=== PATIENT | male | born 2000 | race African-American/Black ===

== ENCOUNTER 2020-04-24 02:19 | Emergency (ER) | payer SELFPAY ==
[~2020-04-24] VITALS: Ht 185.4 cm; Wt 63.5 kg
--- NOTE | 2020-04-24 02:24 | NUR ---
[address], pt states weakness s/p taking 4 tabs of xanax; 2mg per tab. pt denies si/hi. . pt aaox4, gowned, not in any distress, vss, pending er provider oanh
--- NOTE | 2020-04-24 02:40 | NUR ---
URINE COLLECTED. SENT TO LAB
--- NOTE | 2020-04-24 02:45 | NUR ---
CALLED [employer] SPOKE TO DON RECOMMENDS: BMP/ASA LEVEL/TYLENOL LEVER, MONITOR FOR 4HRS
[2020-04-24 02:53] LABS: BASOPHILS % (AUTO) 0.6 % (0.0-2.0); EOSINOPHILS % (AUTO) 1.8 % (0.0-6.0); HEMATOCRIT 41 % (39-51); HEMOGLOBIN 13.7 g/dL (13.5-17.5); LYMPHOCYTES # (AUTO) 2.3 /CMM (0.8-4.8); LYMPHOCYTES % (AUTO) 29.1 % (20.0-44.0); MEAN CORPUSCULAR HGB CONC 33 g/dl (31.0-36.0); MEAN CORPUSCULAR VOLUME 86 fL (80-96); MONOCYTES # (AUTO) 0.5 /CMM (0.1-1.30); MONOCYTES % (AUTO) 6.2 % (2.0-12.0); NEUTROPHILS % (AUTO) 62.3 % (43.0-81.0); PLATELET COUNT (AUTO) 261 /CMM (150-450); RED BLOOD CELL COUNT(AUTO) 4.78 MIL/uL (4.5-6.0)
[2020-04-24 03:04] LABS: BILIRUBIN,URINE NEGATIVE (NEGATIVE); COLOR,URINE YELLOW (YELLOW); LEUKOCYTE ESTERASE ,URINE NEGATIVE (NEGATIVE); NITRITE, URINE NEGATIVE (NEGATIVE); PH,URINE 5.5 (5.0-8.0); PROTEIN,URINE NEGATIVE (NEGATIVE); UGLUCOSE NEGATIVE (NEGATIVE); UROBILINOGEN,URINE 0.2 EU/dL (0.2)
[2020-04-24 03:05] LABS: CALCIUM, SERUM 9.6 mg/dL (8.5-10.1); CARBON DIOXIDE 29 mmol/L (21-32); CHLORIDE 101 mmol/L (98-107); CREATININE 0.9 mg/dL (0.6-1.3); GLUCOSE 85 mg/dL (74-106); POTASSIUM 3.7 mmol/L (3.5-5.1); SODIUM SERUM 139 mmol/L (136-145); UREA NITROGEN, BLOOD 26 mg/dL (7-18)
[2020-04-24 03:11] LABS: ALANINE AMINOTRANSFERASE 42 U/L (12-78); ALBUMIN 4.3 g/dL (3.4-5.0); ALKALINE PHOSPHATASE 90 U/L (46-116); ASPARTATE AMINOTRANSFERASE 38 U/L (15-37); BILIRUBIN,DIRECT 0.1 mg/dL (0.0-0.2); BILIRUBIN,TOTAL 0.4 mg/dL (0.2-1.0); TOTAL PROTEIN, SERUM 7.7 g/dL (6.4-8.2)
[2020-04-24 03:17] LABS: ACETAMINOPHEN 0 ug/ml (10-30); ALCOHOL, BLOOD < 3 mg/dL (0-0)
--- NOTE | 2020-04-24 05:10 | NUR ---
[employer] [employer] CALLED BACK RE: PT. REPORTED LABS; RECOMMENDS TREND TYLENOL LEVEL AT [address] DR. LLOYD MADE AWARE
--- NOTE | 2020-04-24 06:35 | NUR ---
called lab for blood draw
--- NOTE | 2020-04-24 07:37 | NUR ---
called lab for blood draw.
--- NOTE | 2020-04-24 08:00 | NUR ---
[employer] business representative at bedside
--- NOTE | 2020-04-24 08:46 | NUR ---
spoke to Yenny of [employer], still pending salicylate and acetaminophen. . will call them back [phone] for results.
[2020-04-24 09:06] LABS: ACETAMINOPHEN < 10 ug/ml (10-30)
--- NOTE | 2020-04-24 09:25 | NUR ---
spoke to Eldon of [facility] [employer], updated them with acetaminophen ans salicylate results. case will be closed. patient can be discharged.
[2020-04-24 09:28] VITALS: BP 124/60
--- NOTE | 2020-04-24 09:28 | NUR ---
Patient discharged to home in stable condition. Written and verbal after care instructions given. Patient verbalizes understanding of instruction. Provided w sandwich and water.
== END 2020-04-24 09:29 | disposition home or self-care (01) ==
LOC: ER 02:21
DX: T42.4X2A Poisoning by benzodiazepines, intentional self-harm, initial encounter (principal); T42.4X1A Poisoning by benzodiazepines, accidental (unintentional), initial encounter; J45.909 Unspecified asthma, uncomplicated; Z59.0 Homelessness; Y92.89 Other specified places as the place of occurrence of the external cause
CPT/HCPCS: 36415; 80048-TC; 80076-TC; 85025-TC; G0480